=== PATIENT | female | born 1960 | race Caucasian/White ===

== ENCOUNTER 2017-11-01 06:04 | Day surgery (SDC) | payer BC ==
[2017-10-31 12:30] VITALS: BMI 36.5
[~2017-11-01 06:04] MED LIST: BUPIVACAINE HCL/PF (5 MG/ML) 30 ML VIAL IJ ONE; LIDOCAINE HCL 1%, 10 MG/ML (20ML VIAL) NR ONE; ceFAZolin SODIUM 1 GM VIAL IVPB ONE
[2017-11-01 06:37] VITALS: TEMP 97.8
[2017-11-01] MEDS ORDERED: PROPOFOL 20 ML ONE ×5 (07:22)
[2017-11-01] MEDS ORDERED: SUCCINYLCHOLINE CHLORIDE 200 MG/10 ML VIAL ONE (07:22)
[2017-11-01] MEDS ORDERED: MIDAZOLAM HCL 2 MG/2 ML SINGLE DOSE VIAL ONE (07:22)
[2017-11-01] MEDS ORDERED: ePHEDrine SULFATE 50 MG/1 ML AMPULE ONE (07:23)
[2017-11-01] MEDS ORDERED: KETAMINE HCL 200 MG/20 ML VIAL ONE (07:23)
[2017-11-01] MEDS ORDERED: LIDOCAINE HCL 1%, 10 MG/ML (20ML VIAL) ONE (07:43)
[2017-11-01] MEDS ORDERED: BUPIVACAINE HCL/PF 0.5% (5MG/ML) 10 ML VIAL ONE (07:43)
[2017-11-01] MEDS ORDERED: ONDANSETRON 4 MG/2 ML VIAL IVPUSH PRN (08:04)
[2017-11-01] MEDS ORDERED: oxyCODONE HCL 5 MG TABLET PO PRN (08:04)
[2017-11-01] MEDS ORDERED: LACTATED RINGERS SOLUTION 1,000 ML IV SCH (08:15)
--- NOTE | 2017-11-01 08:20 | HP ---
[facility] - Chief Complaint Chief Complaint: left wrist mass History of Present Illness: left wrist mass History Source: Patient Limitations to Obtaining History: No Limitations - Past Medical History Allergies/Adverse Reactions: Allergies Allergy/AdvReac Type Severity Reaction Status Date / Time No Known Drug Allergies Allergy Verified 11/01/17 06:33 - Current Medications Current Medications: Home Medications Medication Instructions Recorded Aspirin Coated [Ecotrin -] 81 mg PO DAILY 10/31/17 Cholecalciferol (Vitamin D3) 1,000 unit PO DAILY 10/31/17 [Vitamin D3] Desmopressin (Nonrefrigerated) 10 mcg NS BID 10/31/17 [Ddavp 0.01% Nasal [place]] Hydrocortisone 15 mg PO DAILY 10/31/17 Hydrocortisone [Cortef -] 5 mg PO HS 10/31/17 Lamotrigine [Lamictal] 150 mg PO BID 10/31/17 Levothyroxine Sodium [Synthroid] 88 mcg PO DAILY 10/31/17 Simvastatin 20 mg PO HS 10/31/17 Ubidecarenone [Co Q10] 200 mg PO DAILY 10/31/17 Metoprolol Tartrate 25 mg PO BID 11/01/17 Satellite Physical Exam - Physical Examination Vital Signs: Vital Signs Period Temp Pulse Resp BP Sys/[place] Pulse Ox Last 24 Hr 97.8 F-97.8 F 76-76 20-20 137-137/72-72 97 General Appearance: Well Nourished ENT: Clear Lung: Clear to auscultation Heart: Regular rate & rhythm Breasts: Soft Abdomen: Soft Extremities: No edema Satellite Impression/Plan - Impression/Plan Impression: left wrist mass Operative Procedure: excision mass left wrist Date to be Performed: 11/01/17
[2017-11-01] MEDS ORDERED: ceFAZolin SODIUM 1 GM VIAL IVPB ONE (08:25)
[2017-11-01] MEDS ORDERED: LIDOCAINE HCL 1%, 10 MG/ML (20ML VIAL) NR ONE (08:32)
[2017-11-01] MEDS ORDERED: BUPIVACAINE HCL/PF (5 MG/ML) 30 ML VIAL IJ ONE (08:32)
--- NOTE | 2017-11-01 08:54 | OP ---
Operative Note - Note: Operative Date: 11/01/17 Pre-Operative Diagnosis: left wrist mass Operation: excision mass left wrist Post-Operative Diagnosis: Same as Pre-op Surgeon: Jacinto Verdugo Anesthesiologist/CARDIAC SPECIALIST: Milo Wu Anesthesia: Local, MAC Specimens Removed: mas left wrist, ganglion Estimated Blood Loss (mls): 0 Drains, Volume Out (mls): 0 Blood Volume Replaced (mls): 0 Fluid Volume Replaced (mls): 500 Operative Report Dictated: Yes
--- NOTE | 2017-11-01 09:23 | OP ---
DATE OF OPERATION: 11/01/2017 PREOPERATIVE DIAGNOSIS: Left wrist dorsal mass. POSTOPERATIVE DIAGNOSIS: Left wrist dorsal mass, ganglion cyst. PROCEDURE: Excision mass, left wrist. SURGEON: Jacinto Gomez MD POLE SHAVER: None. [employer]ET[employer] SPECIALIST: Milo Wu CRNA ANESTHESIA: MAC anesthesia with local injection of 10 mL of 0.5% Marcaine 1% lidocaine mixed. DRAINS: None. COMPLICATIONS: None. SPECIMEN: Mass, left wrist, ganglion cyst. BLOOD LOSS: None. BLOOD GIVEN: None. FLUID REPLACEMENT: 500 mL. INDICATIONS: This patient is a 56-year-old female with a preoperative diagnosis of a large mass on the dorsal aspect of the left wrist. After understanding the potential risks, complications, alternatives, and benefits of surgery versus nonsurgical treatment, the patient elected to undergo this procedure. Patient understands she may have temporary or permanent paresthesias, she will have a scar, she may have numbness, and there is a chance of a recurrence of this mass at this or other locations. DESCRIPTION OF PROCEDURE: The patient was brought to the operating room, peripheral IV was placed, IV sedation was given. One gram of IV Ancef was given, MAC anesthesia was induced. The tourniquet was applied to the left upper arm. Left upper extremity was prepped and draped in sterile fashion, elevated and exsanguinated with an Esmarch bandage. Tourniquet was inflated to 250 mmHg. A transverse incision was made within Langers lines with a No. 15 scalpel blade. Subcutaneous hemostasis was achieved with the bipolar cautery. Dissection was done with the Littler scissors. There was one blood vessel that was going on top of the mass in roughly the 2 o'clock position. This was carefully dissected free from the mass and retracted in a radial direction. It was quite dorsal and not the radial artery. Next, using an Allis clamp for traction, I was able to do a circumferential dissection around this mass. It was well circumscribed, looked to be a multiloculated ganglion cyst. At one point, it popped and blood tinged ganglion cyst fluid was expressed. It had a large stalk approximately 4 mm wide. This was tracked down to the dorsal aspect of the wrist and decapitated at its base. This specimen was passed off the field. I cauterized the base. It was copiously irrigated and washed out. Again, the area was felt and it was visually inspected. I did not see or feel any abnormal tissue. The area was irrigated and washed out again. The extensor tendons were undamaged. Closure was done with 4-0 undyed Vicryl in the deep dermal layer, and final skin reapproximation was done with a running subcuticular 4-0 Biosyn stitch. The area was then washed and dried, covered with Steri-Strips, 4x4s, Webril, and Coban. The tourniquet was taken down after a total tourniquet time of 15 minutes. There were no complications during the case. The patient tolerated the procedure quite well and was brought to the Ambulatory Recovery Room in stable condition. JACINTO GOMEZ M.D. [id number]
[2017-11-01 11:45] VITALS: BP 130/70; PULSE 60
--- NOTE | 2017-11-03 17:26 | PATH ---
Surgical Pathology Report Patient Name: NHAN TAVERA [facility]. Rec. #: [id number] /Age/Gender: 1960 (Age: 56) / F Account: [id number] Location: U SURGICAL Taken: 11/01/2017 Received: 11/01/2017 Reported: 11/03/2017 Physicians: Jacinto Verdugo M.D. Specimen(s) Received GANGLION CYST LEFT WRIST Clinical History Ganglion cyst left wrist Final Diagnosis GANGLION CYST LEFT WRIST: CONSISTENT WITH GANGLION CYST. Electronically Signed Carlota aMc M.D. Gross Description Received in formalin labeled "ganglion cyst left wrist," is a 1.5 x 1.3 x 0.6 cm salas-yellow portion of soft tissue. Sectioning reveals clear mucinous material within the lumen. The specimen is serially sectioned and entirely submitted in one cassette DL/11/01/2017 saudi/11/01/2017
== END 2017-11-01 11:20 | disposition home or self-care (01) ==
LOC: JASU-SURG 06:04
PROVIDERS: ATTEND Orthopaedic Surgery
PROC: 0LB60ZZ Excision of Left Lower Arm and Wrist Tendon, Open Approach (ICD-10-PCS; principal; 2017-11-01 08:00)
DX: M67.432 Ganglion, left wrist (principal)